=== PATIENT | female | born 1945 | race Caucasian/White ===

== ENCOUNTER → 2018-01-15 | Outpatient (CLI) | payer MEDICARE, OTHER ==
[~2018-01-15] MED LIST: CALCIUM PO; DIPH25CA61 PO; LACT1CAP35 PO; MATURE MVT PO; OMEP-110 PO; VIT1CAPS11 PO
== END | disposition home or self-care (01) ==
LOC: STAR 10:16
PROVIDERS: ATTEND Orthopaedic Surgery
DX: Z01.818 Encounter for other preprocedural examination (principal); I21.09 ST elevation (STEMI) myocardial infarction involving other coronary artery of anterior wall; I51.7 Cardiomegaly
CPT/HCPCS: 93005

== ENCOUNTER 2018-01-22 10:20 | Inpatient (IN) | payer MEDICARE, OTHER ==
[~2018-01-22] VITALS: Ht 170.2 cm; Wt 65.4 kg
[~2018-01-22 10:20] MED LIST changes: +BUPIVACAINE/PF 0.5% ONE; +CEFAZOLIN 1,000 MG ONE; +CLINDAMYCIN 150 MG/ML, 6ML ONE; +DEXAMETHASONE 4 MG/ML, 1ML ONE; +FENTANYL PF 100 MCG/2ML ONE; +GLYCOPYRROLATE 0.2MG/1ML, 5ML ONE; +LIDOCAINE GEL 2%, 5ML ONE; +MIDAZOLAM 1 MG/ML, 2ML ONE; +NEOSTIGMINE 1 MG/ML, 10ML ONE; +ONDANSETRON 2MG/ML, 2ML ONE; +PROPOFOL 10 MG/ML, 20ML ONE; +SUCCINYLCHOLINE 20 MG/ML, 10ML ONE; +TRANEXAMIC ACID 100 MG/ML, 10ML ONE
[2018-01-22] MEDS ORDERED: VANCOMYCIN PER PHARMACY MC ONE (10:29)
[2018-01-22] MEDS ORDERED: ONDANSETRON ODT 8 MG PO ONE (11:00)
[2018-01-22] MEDS ORDERED: VANCOMYCIN 1,200 MG in SODIUM CHLORIDE 0.9% 250 ML IV ONE (11:00)
[2018-01-22] MEDS ORDERED: GABAPENTIN 300 MG CAPSULE PO ONE (11:00)
[2018-01-22] MEDS ORDERED: ACETAMINOPHEN 500 MG TABLET PO ONE (11:00)
[2018-01-22] MEDS ORDERED: PHARMACOKINETIC CONSULTATION MC ONE (11:00)
[2018-01-22] MEDS ORDERED: LACTATED RINGERS 1,000 ML IV SCH (11:19)
[2018-01-22] MEDS ORDERED: ONDANSETRON 2MG/ML, 2ML IV PRN (11:30)
[2018-01-22] MEDS ORDERED: PROMETHAZINE 25 MG/ML, 1ML IM PRN (11:30)
[2018-01-22] MEDS ORDERED: MAGNESIUM HYDROXIDE 8%, 30ML UDC PO PRN (11:30)
[2018-01-22] MEDS ORDERED: BISACODYL 10 MG SUPP PR PRN (11:30)
[2018-01-22] MEDS ORDERED: ACETAMINOPHEN 325 MG TABLET PO PRN (11:30)
[2018-01-22] MEDS ORDERED: KETOROLAC 30 MG/1 ML IV SCH (11:30)
[2018-01-22] MEDS ORDERED: SENNA/DOCUSATE TABLET PO PRN (11:30)
[2018-01-22] MEDS ORDERED: OXYcodone 5 MG/5 ML ORAL.SOL UDC PO PRN (13:00)
[2018-01-22] MEDS ORDERED: LABETALOL 5MG/ML, 20ML IV PRN (13:00)
[2018-01-22] MEDS ORDERED: hydrALAzine 20 MG/ML, 1ML IV PRN (13:00)
[2018-01-22] MEDS ORDERED: SCOPOLAMINE PATCH, 1.5MG PATCH.TD72 TD PRN (13:00)
[2018-01-22] MEDS ORDERED: DIAZEPAM 5 MG/ML, 2ML IVPush PRN (13:00)
[2018-01-22] MEDS ORDERED: PROMETHAZINE 25 MG/ML, 1ML IV PRN (13:00)
[2018-01-22] MEDS ORDERED: FENTANYL PF 100 MCG/2ML IV PRN (13:00)
[2018-01-22] MEDS ORDERED: ALBUTEROL/IPRATROPIUM 2.5MG/0.5MG, 3 ML NPPB PRN (13:00)
[2018-01-22] MEDS ORDERED: HYDROmorphone 1 MG/ML, 1ML IV PRN (13:00)
[2018-01-22] MEDS ORDERED: ONDANSETRON ODT 8 MG PO PRN (13:00)
[2018-01-22] MEDS ORDERED: MIDAZOLAM 1 MG/ML, 2ML IV PRN (13:00)
[2018-01-22] MEDS ORDERED: MORPHINE SULFATE 4 MG/ML, 1ML IVPush PRN (13:00)
[2018-01-22] MEDS ORDERED: EPHEDRINE 50 MG/ML, 1ML IM PRN (13:00)
[2018-01-22] MEDS ORDERED: KETOROLAC 30 MG/1 ML ONE (14:21)
[2018-01-22] MEDS ORDERED: LABETALOL 5MG/ML, 20ML ONE (14:26)
[2018-01-22] MEDS ORDERED: hydrALAzine 20 MG/ML, 1ML ONE (14:26)
[2018-01-22] MEDS ORDERED: ROCURONIUM 10 MG/ML,10ML ONE (15:40)
[2018-01-22] MEDS: KETOROLAC 30 MG/1 ML IV SCH (15:54)
[2018-01-22] MEDS: D5%-0.45% NACL 1,000 ML IV SCH (15:54)
[2018-01-22 19:29] VITALS: BP 145/74
[2018-01-22] MEDS: DOCUSATE 100 MG CAPSULE PO SCH (20:20)
[2018-01-22] MEDS: CEFAZOLIN PMX 1GM/50ML 50 ML IVPB SCH (20:20)
[2018-01-23 00:06] VITALS: BP 160/72
[2018-01-23] MEDS: KETOROLAC 30 MG/1 ML IV SCH (00:31)
[2018-01-23] MEDS: CEFAZOLIN PMX 1GM/50ML 50 ML IVPB SCH ×2 (04:37→12:23)
[2018-01-23] MEDS: D5%-0.45% NACL 1,000 ML IV SCH ×2 (05:24→11:31)
[2018-01-23 07:20] VITALS: BP 179/73
[2018-01-23] MEDS: DOCUSATE 100 MG CAPSULE PO SCH (07:29)
[2018-01-23 07:59] VITALS: BP 122/64
[2018-01-23] MEDS ORDERED: DIPHENHYDRAMINE 25 MG CAPSULE PO SCH (09:00)
[2018-01-23] MEDS ORDERED: OMEPRAZOLE 20 MG CAPSULE.DR PO SCH (09:00)
[2018-01-23 13:32] VITALS: BP 155/75
[2018-01-23] MEDS ORDERED: TRAM50TA2 PO (14:35)
== END 2018-01-23 14:42 | disposition home or self-care (01) | DRG 483 ==
LOC: ORIP 10:20 → 4NOR 14:58 → DCLOUNGE 01-23 14:24
PROVIDERS: ADMIT Orthopaedic Surgery; ATTEND Orthopaedic Surgery
PROC: 0LS30ZZ Reposition Right Upper Arm Tendon, Open Approach (ICD-10-PCS; 2018-01-22)
PROC: 0RRJ00Z Replacement of Right Shoulder Joint with Reverse Ball and Socket Synthetic Substitute, Open Approach (ICD-10-PCS; principal; 2018-01-22 13:30)
DX: M19.011 Primary osteoarthritis, right shoulder (principal); M87.811 Other osteonecrosis, right shoulder; Z88.2 Allergy status to sulfonamides; M75.20 Bicipital tendinitis, unspecified shoulder; K21.9 Gastro-esophageal reflux disease without esophagitis; Z82.61 Family history of arthritis; Z87.891 Personal history of nicotine dependence
CPT/HCPCS: C1713; C1776; J0690; J1100; J1885; J2250; J2405; J2704; J2710; J3010; J3370; J3490; Q0162; C1769; J0330; J7050; J7120; Q0163

== ENCOUNTER → 2020-07-21 | Outpatient (CLI) | payer MEDICARE, OTHER ==
[~2020-07-21] MED LIST changes: -BUPIVACAINE/PF 0.5% ONE; -CEFAZOLIN 1,000 MG ONE; -CLINDAMYCIN 150 MG/ML, 6ML ONE; -DEXAMETHASONE 4 MG/ML, 1ML ONE; -FENTANYL PF 100 MCG/2ML ONE; -GLYCOPYRROLATE 0.2MG/1ML, 5ML ONE; -LIDOCAINE GEL 2%, 5ML ONE; +LISI-167 PO; -MIDAZOLAM 1 MG/ML, 2ML ONE; -NEOSTIGMINE 1 MG/ML, 10ML ONE; -ONDANSETRON 2MG/ML, 2ML ONE; -PROPOFOL 10 MG/ML, 20ML ONE; -SUCCINYLCHOLINE 20 MG/ML, 10ML ONE; +TRAM50TA2 PO; -TRANEXAMIC ACID 100 MG/ML, 10ML ONE
[2020-07-21 12:35] LABS: BASOPHILS % (AUTO) 1 % (0-1); EOSINOPHILS % (AUTO) 1 % (1-7); LYMPHOCYTES % (AUTO) 21 % (22-44); MEAN CORPUSCULAR HEMOGLOBIN 32.3 pg (27.0-34.8); MEAN CORPUSCULAR HGB CONC 33.5 g/dL (32.4-35.8); MEAN PLATELET VOLUME 8.1 fL (7.4-10.4); MONOCYTES % (AUTO) 6 % (2-9); NEUTROPHILS % (AUTO) 72 % (42-75); PLATELET COUNT 272 x10^3/uL (130-400); RED BLOOD COUNT 4.37 x10^6/uL (3.82-5.3); RED CELL DISTRIBUTION WIDTH 14.2 % (9.6-15.2)
[2020-07-21 12:36] LABS: MD NO
[2020-07-21 12:44] LABS: INTERNATIONAL NORMALIZED RATIO 0.96 (0.93-1.1); PROTHROMBIN TIME 10.2 Seconds (9.6-11.5)
[2020-07-21 12:47] LABS: CALCIUM 9.1 mg/dL (8.5-10.1); CHLORIDE 107 mmol/L (98-107)
[2020-07-21 12:53] LABS: ALANINE AMINOTRANSFERASE 28 U/L (12-78); ALKALINE PHOSPHATASE 89 U/L (45-117); ANION GAP 5 mmol/L (5-15); BILIRUBIN,TOTAL 0.4 mg/dL (0.2-1.0); CREATININE 0.84 mg/dL (0.55-1.02); TOTAL PROTEIN 7.8 g/dL (6.4-8.2)
== END | disposition home or self-care (01) ==
LOC: STAR 11:18
PROVIDERS: ATTEND Orthopaedic Surgery
DX: Z01.818 Encounter for other preprocedural examination (principal); M16.12 Unilateral primary osteoarthritis, left hip; M25.552 Pain in left hip; I25.2 Old myocardial infarction; Z20.828 Contact with and (suspected) exposure to other viral communicable diseases
CPT/HCPCS: 36415; 80053; 83036; 85025; 85610; 85730; 87081; 93005; U0003

== ENCOUNTER 2020-07-26 08:52 | Day surgery (SDC) | payer MEDICARE, OTHER ==
[~2020-07-26] VITALS: Ht 170.2 cm; Wt 65.5 kg
[~2020-07-26 08:52] MED LIST changes: +ACETAMINOPHEN 650 MG/20.3 ML UDC PO PRN; +BISACODYL 10 MG SUPP PR PRN; +CEFAZOLIN PMX 2GM/50ML 50 ML IVPB SCH; +DIPHENHYDRAMINE 50 MG CAPSULE PO PRN; +EPINEPHRINE 1 MG/ML, 1ML ONE; +HYDROcodone/APAP 5/325 TABLET PO PRN; +KETOROLAC 30 MG/1 ML IVPush SCH; +KETOROLAC 60 MG/2 ML ONE; +MAGNESIUM HYDROXIDE 8%, 30ML UDC PO PRN; +NS + 20MEQ KCL 1,000 ML IV SCH; +ONDANSETRON 2MG/ML, 2ML IV PRN; +ONDANSETRON 4 MG TABLET PO PRN; +OXYcodone IR 5MG TABLET PO PRN; +ROPIvacaine/PF 0.5%, 20 ML ONE; +ROPIvacaine/PF 0.5%, 30 ML ONE; +SENNA/DOCUSATE TABLET PO PRN; +SODIUM CHLORIDE 0.9% 50 ML ONE; +TRANEXAMIC ACID 100 MG/ML, 10ML ONE; +VANCOMYCIN 1,000 MG ONE; +ZOLPIDEM 5MG TABLET PO PRN
[2020-07-26] MEDS ORDERED: OMEPRAZOLE 20 MG CAPSULE.DR PO SCH (09:00)
[2020-07-26] MEDS ORDERED: LISINOPRIL 10 MG TABLET PO SCH (09:00)
[2020-07-26] MEDS ORDERED: DOCUSATE 100 MG CAPSULE PO SCH (09:00)
[2020-07-26 09:25] VITALS: BP 176/82
[2020-07-26] MEDS ORDERED: LACTATED RINGERS 1,000 ML IV SCH (09:30)
[2020-07-26] MEDS ORDERED: GABAPENTIN 300 MG CAPSULE PO ONE (09:30)
[2020-07-26] MEDS ORDERED: ACETAMINOPHEN 500 MG TABLET PO ONE (09:30)
[2020-07-26] MEDS ORDERED: CHLORHEXIDINE 15 ML UDC MM ONE (09:30)
[2020-07-26] MEDS ORDERED: FENTANYL PF 250 MCG/5ML ONE (10:12)
[2020-07-26] MEDS ORDERED: PROPOFOL 10 MG/ML, 20ML ONE (10:31)
[2020-07-26] MEDS ORDERED: CEFAZOLIN 1,000 MG ONE (10:31)
[2020-07-26] MEDS ORDERED: ONDANSETRON 2MG/ML, 2ML ONE (10:31)
[2020-07-26] MEDS ORDERED: DEXAMETHASONE 4 MG/ML, 5ML ONE (10:31)
[2020-07-26] MEDS ORDERED: SUCCINYLCHOLINE 20 MG/ML, 10ML ONE (10:31)
[2020-07-26] MEDS ORDERED: OXYcodone 5 MG/5 ML ORAL.SOL UDC ONE (12:03)
[2020-07-26] MEDS ORDERED: FENTANYL PF 100 MCG/2ML ONE (12:03)
[2020-07-26] MEDS ORDERED: HYDROmorphone 1 MG/ML, 1ML INJ ONE (12:18)
[2020-07-26] MEDS ORDERED: OXYcodone 5 MG/5 ML ORAL.SOL UDC PO PRN (12:30)
[2020-07-26] MEDS ORDERED: KETOROLAC 30 MG/1 ML IV PRN (12:30)
[2020-07-26] MEDS ORDERED: ACETAMINOPHEN 325 MG TABLET PO PRN (12:30)
[2020-07-26] MEDS ORDERED: ALBUTEROL SULFATE 2.5 MG/3 ML NPPB PRN (12:30)
[2020-07-26] MEDS ORDERED: PROMETHAZINE 25 MG/ML, 1ML IV PRN (12:30)
[2020-07-26] MEDS ORDERED: HYDROmorphone 2 MG/ML, 1ML IVPush PRN (12:30)
[2020-07-26] MEDS ORDERED: DIAZEPAM 5 MG/ML, 2ML IVPush PRN (12:30)
[2020-07-26] MEDS ORDERED: hydrALAzine 20 MG/ML, 1ML IV PRN (12:30)
[2020-07-26] MEDS ORDERED: MEPERIDINE/PF 25MG/0.5ML IVPush PRN (12:30)
[2020-07-26] MEDS ORDERED: LABETALOL 5MG/ML, 20ML IV PRN (12:30)
[2020-07-26] MEDS ORDERED: FENTANYL PF 100 MCG/2ML IV PRN (12:30)
[2020-07-26] MEDS ORDERED: ACETAMINOPHEN 325 MG TABLET ONE (12:41)
[2020-07-26] MEDS ORDERED: hydrOXYzine 25 MG/ML IM PRN (15:00)
[2020-07-26] MEDS ORDERED: EPHEDRINE 50 MG/ML, 1ML IM ONE (15:00)
[2020-07-26] MEDS ORDERED: ASPIRIN 81 MG TABLET EC PO SCH (18:00)
[2020-07-27] MEDS ORDERED: DEXAMETHASONE 4 MG/ML, 1ML IVPush SCH (06:00)
== END 2020-07-26 17:40 | disposition home or self-care (01) ==
LOC: OUT 08:52
PROVIDERS: ATTEND Orthopaedic Surgery
DX: M16.12 Unilateral primary osteoarthritis, left hip (principal); M41.80 Other forms of scoliosis, site unspecified; M25.752 Osteophyte, left hip; I10 Essential (primary) hypertension; Z79.1 Long term (current) use of non-steroidal anti-inflammatories (NSAID); Z79.899 Other long term (current) drug therapy; Z87.891 Personal history of nicotine dependence; Z88.2 Allergy status to sulfonamides; Z88.5 Allergy status to narcotic agent; Z82.61 Family history of arthritis
CPT/HCPCS: 27130; 73501; 73502; 97161; 97165; C1713; C1776; J0171; J0330; J0690; J1100; J1170; J1885; J2405; J2704; J2795; J3010; J3370; J3410; J7120; 76000